=== PATIENT | male | born 1985 | race Caucasian/White ===

== ENCOUNTER 2016-06-14 15:39 | Emergency (ER) | payer OTHER ==
[~2016-06-14 15:39] MED LIST: KEFLEX500 M1 PO
--- NOTE | 2016-06-14 15:49 | ED PSYCHIATRIC COMPLAINT ---
History of Present Illness General Chief Complaint: Psychiatric Related Complaint Stated Complaint: PSYCH EVAL Source: patient, old records Exam Limitations: no limitations Vital Signs & Intake/Output Vital Signs & Intake/Output Vital Signs Date Time Temp Pulse Resp B/P Pulse O2 O2 Flow FiO2 Ox Delivery Rate 06/14 1613 Room Air 06/14 1544 97.5 90 18 126/86 97 Room Air Allergies Coded Allergies: No Known Allergies (09/30/15) Reconcile Medications No Known Home Medications Triage Note: PT BIBA FOR PSYCH EVAL. PER EMS PT WAS AT [facility], MADE +SI COMMENTS, AND WAS BROUGHT IN FOR EVALUATION. PT WAS COMBATIVE ON SCENE, ARRIVED CALM AND COOPERATIVE. PER PT HE DOES NOT WANT TO HURT HIMSELF OR OTHERS. Triage Nurses Notes Reviewed? 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 According to the patient he states he wasn't suicidal but very upset about being denied Social Security at his hearing 1 month ago. History of previous suicide attempt in August 2014 but states that he does want to kill himself anymore. Patient lives alone. Denies any hallucinations or drug abuse. He states he does not hurt anybody else either. 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 He states the future should he lose his job secondary to stress he wants the system to be aware of his chronic medical issues. Issues and he doesn't want a delay of 2 or 3 years to get another Social Security hearing. Past History Medical History Any Pertinent Medical History? 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 No Review of Systems Review of Systems Constitutional: Denies: chills, fever. EENTM: Reports: no symptoms. Respiratory: Denies: cough, short of breath. Cardiovascular: Denies: chest pain, palpitations. GI: Denies: abdominal pain. Genitourinary: Reports: no symptoms. Musculoskeletal: Reports: no symptoms. Skin: Reports: no symptoms. Neurological/Psychological: Reports: anxiety, depressed. Hematologic/Endocrine: Denies: bruising, bleeding, polyuria, polydipsia. Immunologic/Allergic: Denies: splenectomy. All Other Systems: Reviewed and Negative Physical Exam Physical Exam General Appearance: well developed/nourished, alert, awake, anxious, mild distress, obese Head: atraumatic Eyes: Bilateral: PERRL, EOMI. 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 yes 1 Depression/Hopelessness? yes 2 Previous Attempts/Psych Care yes 1 Rational Thinking Loss? yes 2 Social Support? has support 0 Total 6 SAD PERSONS Done? yes Progress Differential Diagnosis: anxiety, depression, suicidal ideation, ptsd Plan of Care: Orders Procedure Date/time Status URINE DRUGS OF ABUSE 06/14 1741 Active URINALYSIS 06/14 1741 Complete Continuous Observation Monitor 06/14 1641 Active ETHANOL 06/14 1641 Complete COMPREHENSIVE METABOLIC PANEL 06/14 1641 Complete CBC WITHOUT DIFFERENTIAL 06/14 1641 Complete ED CRISIS PSYCH CONSULT 06/14 1641 Active Laboratory Tests 06/14/16 1747: Urine Opiates Screen Pending, Methadone Screen Pending, Barbiturate Screen Pending, Ur Phencyclidine Scrn Pending, Amphetamines Screen Pending, U Benzodiazepines Scrn Pending, Urine Cocaine Screen Pending, Urine Cannabis Screen Pending, Urine Color YEL, Urine Clarity CLEAR, Urine pH 6.0, Ur Specific [place] 1.025, Urine Protein TRACE H, Urine Ketones NEG, Urine Nitrite NEG, Urine Bilirubin NEG, Urine Urobilinogen 0.2, Ur Leukocyte Esterase NEG, Ur Microscopic SEDIMENT EXAMINED, Urine RBC RARE, Urine WBC 1-3 H, Ur Epithelial Cells RARE, Hyaline Casts FEW H, Urine Mucus RARE, Urine Hemoglobin NEG, Urine Glucose NEG 06/14/16 1649: Anion Gap 12, Estimated GFR > 60, BUN/Creatinine Ratio 18.8, Glucose 189 H, Calcium 9.0, Total Bilirubin 0.4, AST 22, ALT 24, Alkaline Phosphatase 63, Total Protein 7.4, Albumin 4.3, Globulin 3.1, Albumin/Globulin Ratio 1.4, CBC w Diff NO MAN DIFF REQ, RBC 5.00, MCV 82.9, MCH 27.9, RDW 14.1, MPV 9.7, Gran % 67.2, Lymphocytes % 22.8, Monocytes % 7.2, Eosinophils % 2.5, Basophils % 0.3, Absolute Granulocytes 5.4, Absolute Lymphocytes 1.8, Absolute Monocytes 0.6, Absolute Eosinophils 0.2, Absolute Basophils 0, PUBS MCHC 33.7, Serum Alcohol < 10.0 PATIENT SEEN AND CLEARED BY [facility] FOR DISCHARGE HOME ([facility]) Departure Departure Time of Disposition: 1845 Disposition: HOME OR SELF CARE Condition: Stable Clinical Impression Primary Impression: PTSD (post-traumatic stress disorder) Secondary Impressions: Autism spectrum disorder Referrals: PATIENT HAS NO PRIMARY CARE DR (PCP/Family) Additional Instructions: FOLLOW UP WITH CARE ON FRIDAY. RETURN NEEDED. Departure Forms: Customer Survey General Discharge Information Prescriptions: Current Visit Scripts No Known Home Medications
[2016-06-14 17:14] LABS: ABSOLUTE BASOPHIL COUNT 0 /CUMM (0.0-0.2); ABSOLUTE EOSINOPHIL COUNT 0.2 /CUMM (0.0-0.7); ABSOLUTE GRANULOCYTE CT 5.4 /CUMM (1.4-6.5); ABSOLUTE LYMPH COUNT 1.8 /CUMM (1.2-3.4); ABSOLUTE MONOCYTE COUNT 0.6 /CUMM (0.10-0.60); BASOPHIL % 0.3 % (0.0-2.0); EOSINOPHIL % 2.5 % (0-5); GRANULOCYTE % 67.2 % (42.2-75.2); HEMATOCRIT 41.4 % (42-52); MEAN CORPUSCULAR HGB 27.9 PG (27.0-31.0); MEAN CORPUSCULAR HGB CONC 33.7 G/DL (33.0-37.0); MEAN CORPUSCULAR VOLUME 82.9 FL (80.0-94.0); MEAN PLATELET VOLUME 9.7 FL (7.4-10.4); PLATELET COUNT 196 /CUMM (130-400); RBC DISTRIBUTION WIDTH 14.1 % (11.5-14.5)
--- NOTE | 2016-06-14 18:44 | ED PSYCH CRISIS CONSULTATION ---
Crisis Consult Basic Assessment Date of Consult: 06/14/16 Responsible Person/Accompanied By: None - brought in on [facility] Insurance Authorization: Insurance #1: Insurance name: PATRICK COLBERT Phone number: Policy number: [id number] Group number: Authorization number: ED Provider: Patient's ED Provider: ADAN SANCHEZ MD Primary Care Physician: Patient's PCP: PATIENT HAS NO PRIMARY CARE DR PCP's Phone Number: Current Psychiatrist: Patient denies Chief Complaint: Psychiatric Related Complaint Patient's Quote: I got a letter from social security...I was denied." Present Illness: Patient is a 31 year old male who presents to the emergency department due to report from [facility] of him making a suicidal statement. Pt. admits he made a suicidal statement and reports primary stressor of being denied social security benefits after a recent disability hearing. Pt. received a letter last week. Pt. was explaining this situation to his vocational counselor at [facility] and became escalated. Pt. has historical diagnoses of PTSD and Autism Spectrum Disorder. Pt. also reports a diagnosis of Borderline Personality Disorder which was not confirmed by [facility]. Pt. also reports being frustrated by the conflict between reality and his fantasy world. Pt. states "I like to live in a fantasy." Pt. was holding a purple pony doll and introduced it as "Robyn." Pt. was last evaluated at [facility] by crisis on 04/30/2016 *see consult. Pt. reports he is part of two online communities known as "Keep[employer]" and "Clone." A part of these imaginary lifestyles is wearing diapers / simulating baby behavior and wearing animal costumes. Pt. does not report being active socially with this community or attending conventions. Pt. denies current suicidal ideation, plan or intent. Pt. reports he cut last year in August and states "that scared me out of wanting to do anything." Pt. also stated " I definitely dont have a plan." Pt. asserts he is mostly disappointed about his SSI denial and also the conflict between his personas stating "When I said that...maybe it's because no one acknowledges me." Pt. 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 Pt. is interested in disability benefits more as a back-up plan if he were to lose his job or become unable to perform it. Pt. is anxious about revealing his "brony" / "baby fur" persona to his employer but wants to wear his fur ears while working. Pt. denies A/V hallucinations. Pt. denies anxiety or long standing depressed mood. Pt. has support of [facility] for mental health therapy as well as residential and vocational assistance. Pt. is estranged from his mother due to her disapproval of his chosen persona. Pt. is engaged in family therapy in an attempt to resolve this family conflict. Patient's Address: [address] [place] [id number] Other Phone Number: Who Do You Live With? Patient/Self Family/Informants Interviewed: no family/collateral ID'd Allergies - Coded Allergies: No Known Allergies (09/30/15) Current Medications - No Known Home Medications Laboratory Results: Laboratory Tests 06/14/16 1747: Urine Opiates Screen < 100.00, Methadone Screen < 40, Barbiturate Screen < 60, Ur Phencyclidine Scrn < 6.00, Amphetamines Screen < 100, U Benzodiazepines Scrn < 85, Urine Cocaine Screen < 50, Urine Cannabis Screen < 5.00, Urine Color YEL, Urine Clarity CLEAR, Urine pH 6.0, Ur Specific [place] 1.025, Urine Protein TRACE H, Urine Ketones NEG, Urine Nitrite NEG, Urine Bilirubin NEG, Urine Urobilinogen 0.2, Ur Leukocyte Esterase NEG, Ur Microscopic SEDIMENT EXAMINED, Urine RBC RARE, Urine WBC 1-3 H, Ur Epithelial Cells RARE, Hyaline Casts FEW H , Urine Mucus RARE, Urine Hemoglobin NEG, Urine Glucose NEG 06/14/16 1649: Anion Gap 12, Estimated GFR > 60, BUN/Creatinine Ratio 18.8, Glucose 189 H, Calcium 9.0, Total Bilirubin 0.4, AST 22, ALT 24, Alkaline Phosphatase 63, Total Protein 7.4, Albumin 4.3, Globulin 3.1, Albumin/Globulin Ratio 1.4, CBC w Diff NO MAN DIFF REQ, RBC 5.00, MCV 82.9, MCH 27.9, RDW 14.1, MPV 9.7, Gran % 67.2, Lymphocytes % 22.8, Monocytes % 7.2, Eosinophils % 2.5, Basophils % 0.3, Absolute Granulocytes 5.4, Absolute Lymphocytes 1.8, Absolute Monocytes 0.6, Absolute Eosinophils 0.2, Absolute Basophils 0, PUBS MCHC 33.7, Serum Alcohol < 10.0 Past History Past Medical History 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. He lives in his own apartment and has job, drives Physical Limitations (Interventions): none known Psychiatric Treatment History Psych Treatment Psychiatric Treatment Yes Inpatient Treatment No Outpatient Treatment Yes Location of Treatment [facility] in [place], [place] Reason for Treatment Autism Spectrum Disorder, Anxiety, Vocational assistance and development needs Dates of Treatment Since 2013 Response to Treatment Stable - maintaining in the community and employed. Patient is no longer on Zoloft as he had negative side effect of headaches and also reported limited positive effect. Diagnosis by History: Aspergers & depression Substance Use/Abuse History Drug Use/Abuse Substances Used/Abused No (Pt. denies) First Use - Last Used - How much used/taken - How often - For how long - Route of use - Substance Abuse Treatment Substance Abuse Treatment Past Substance Abuse [place] No (Pt. denies) Location of Treatment - Reason for Treatment - Dates of Treatment - Response to Treatment - Comments: - Current Mental Status Mental Status Orientation: Person, Place, Situation Affect: Flat Speech: Mumbled Neuro-vegetative: WNL Appearance Appearance- Dress/Hygiene: Pt dressed in hospital scrubs. Pt. was holding a doll. This underwriter observed healed cuts on pt.'s right arm which he reported was from cutting - last occurence ~ August 2015. Behaviors Thought Process: WNL Thought Content: WNL Memory: WNL Insight: Fair SI/HI Risk Assessment Past Suicidal Ideation/Attempts Yes Current Suicidal Ideation/Att No (Pt. denies current ideation) Past Homicidal Ideation/Att: No (Pt. denies) Current Homicidal Ideation/Attempts No (Pt. denies) Degree of Intent: None Danger To: N/A Gravely Disabled: Poor Impulse Control Risk Factors: chronic/serious med cond., high anxiety/distress, poor impulse control, lives alone, male Lethality Ratin (mild) PTSD Checklist PTSD Done? patient declined ED Management Sitter: Yes Restraints: No DSM5/PS Stressors/Medical Prob Diagnosis' (DSM 5, Stressors, Medical): F84.0 Autism spectrum disorder F43.10 Post Traumatic Stress Disorder, unspecified Rule - out for F60.3 Borderline Personality Disorder Current GAF: 60 Comments: Reports difficulty with maintaining employment and pursuing disability benefits. Family conflict. Diabetes condition Departure Disposition Psych Medical Clearance Date: 06/14/16 Medically Cleared at: 1745 Time Started: 174 Time Ended: 1844 Psychiatrist Consulted: Dr. Tru Shaw MD Date Disposition Established: 06/14/16 Time Disposition Established: 1829 Plan for Disposition - Modality: Outpatient Facility: [facility] Follow-up Appt Date: 06/21/16 Contact: Pop Rationale for Disposition: Pt. denies current suicidal intent or plan. Pt. is future oriented and intends to follow up with his current outpatient counselor. Referrals PATIENT HAS NO PRIMARY CARE DR (PCP/Family)
[2016-06-14 18:50] VITALS: BP 122/76
--- NOTE | 2016-06-14 19:28 | ED PSY CRISIS COLLATERAL NOTE ---
Collateral Note Collateral Note Family/Inform/Miranda Contacts: Spoke to Mariela of [facility] who states that patient has made multiple threats to kill himself and retracted the statements over the past week. Mariela states that the patient was recently denied social security disability and believes that this was a trigger for him. Mariela reports that the patient was papered by the doctor and was agitated when sent to the ED resulting in him strapped down in the ambulance. Mariela reports the patient believes he is a furry being attached to a stuffed animal and wearing diapers by choice. Mariela states the patient has refused his medication. She reports the patient has been diagnosed with Borderline Personality Disorder, PTSD, Autism Spectrum and Persistent Depressive Disorder. She states a face sheet was sent with the ambulance. This note prepared by Juanito Pulido, SUPERVISOR AIR CONDITIONING INSTALLER Baggage Screener and signed off by Brannon Peters LCSW
== END 2016-06-14 18:54 ==
LOC: ERH 15:39
PROVIDERS: Emergency Medicine
DX: F43.10 Post-traumatic stress disorder, unspecified (principal); F84.0 Autistic disorder
CPT/HCPCS: 80307; 81001; G0463; G0480

== ENCOUNTER 2016-07-05 19:34 | Emergency (ER) | payer OTHER ==
[~2016-07-05] VITALS: Ht 182.9 cm; Wt 113.4 kg
[2016-07-05] MEDS ORDERED: ATIVAN0.5 M1 PO (20:09)
--- NOTE | 2016-07-05 20:09 | ED PSYCHIATRIC COMPLAINT ---
History of Present Illness General Chief Complaint: Psychiatric Related Complaint Stated Complaint: "NEED TO SPEAK TO SOMEONE" Source: patient Exam Limitations: no limitations Vital Signs & Intake/Output Vital Signs & Intake/Output Vital Signs Date Time Temp Pulse Resp B/P Pulse O2 O2 Flow FiO2 Ox Delivery Rate 07/06 0143 97.3 88 18 138/82 100 Room Air 07/05 2359 97.9 90 18 141/85 99 Room Air 07/05 1952 97.1 96 18 145/91 98 Room Air ED Intake and Output 07/06 0000 07/05 1200 Intake Total Output Total Balance Patient 250 lb Weight Allergies Coded Allergies: No Known Allergies (09/30/15) Reconcile Medications Lorazepam (Ativan) 0.5 MG TABLET 1 TAB PO BIDP PRN anxiety five...[id number] Triage Note: PT TO TRIAGE WITH STATEMENT "EVERYONE IS PICKING AT ME AT WORK, AND I'M BEING HARASSED AT WORK BECAUSE MY CLOSE IS DURTY" , "I'M FEELING HOPELESS". PT APPEARS SAD, DEPRESSED, CRYING IN TRIAGE. DENIES SI/HI, DENIES ETOH/ILLICIT DRUGS USE. VSS. PT AMB TO ROOM13. Triage Nurses Notes Reviewed? yes Onset: Gradual Duration: day(s): Severity: mild, moderate Associated Symptoms: anxiety HPI: 31 yo gentleman, h/o asperger's presents tearful after an episode at work. "I work at [email or web address]... A customer said that my clothes were unclean... My boss told me about it... I feel like he is harrassing me.... I feel like I do a good job." He denies suicidality, homicidality, hallucinations. He states that he is otherwise well. Past History Travel History Traveled to [place] past 21 day No Medical History Any Pertinent Medical History? 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 No Review of Systems Review of Systems Constitutional: Reports: no symptoms. EENTM: Reports: no symptoms. Respiratory: Reports: no symptoms. Cardiovascular: Reports: no symptoms. GI: Reports: no symptoms. Genitourinary: Reports: no symptoms. Musculoskeletal: Reports: no symptoms. Skin: Reports: no symptoms. Neurological/Psychological: Reports: no symptoms. Hematologic/Endocrine: Reports: no symptoms. Immunologic/Allergic: Reports: no symptoms. All Other Systems: Reviewed and Negative Physical Exam Physical Exam General Appearance: well developed/nourished, mild distress Head: atraumatic Eyes: Bilateral: PERRL, EOMI. Ears, Nose, Throat: normal pharynx, normal ENT inspection, hearing grossly normal Neck: normal inspection, supple Respiratory: normal breath sounds Cardiovascular: regular rate/rhythm Gastrointestinal: soft, non-tender Extremities: normal range of motion Neurological/Psychiatric: no motor/sensory deficits, awake, agitated, anxious Appearance/Memory/Insight: appropriate appearance, denies illness, disheveled Behavoir/Eye Contact/Speech: cooperative Thoughts/Hallucinations: normal thought pattern, no apparent hallucination Skin: intact, normal color, warm/dry SAD PERSONS Done? patient not suicidal Progress Differential Diagnosis: agitation, anxiety, asperger's Plan of Care: Orders Procedure Date/time Status Regular Diet 07/06 B Active Continuous Observation Monitor 07/05 2023 Active URINE DRUG SCREEN FOR ER ONLY 07/05 2023 Complete ETHANOL 07/05 2023 Complete COMPREHENSIVE METABOLIC PANEL 07/05 2023 Complete CBC WITHOUT DIFFERENTIAL 07/05 2023 Complete ED CRISIS PSYCH CONSULT 07/05 2023 Active Laboratory Tests 07/05/166: Serum Alcohol < 10.0 07/05/16 2136: Anion Gap 11, Estimated GFR > 60, BUN/Creatinine Ratio 11.1, Glucose 126 H, Calcium 8.5, Total Bilirubin 0.4, AST 29, ALT 31, Alkaline Phosphatase 57, Total Protein 6.4, Albumin 3.7, Globulin 2.7, Albumin/Globulin Ratio 1.4, CBC w Diff NO MAN DIFF REQ, RBC 4.26 L, MCV 82.8, MCH 27.9, RDW 13.7, MPV 9.4, Gran % 51.4 , Lymphocytes % 33.5, Monocytes % 12.8 H, Eosinophils % 1.9, Basophils % 0.4, Absolute Granulocytes 3.0, Absolute Lymphocytes 1.9, Absolute Monocytes 0.7 H, Absolute Eosinophils 0.1, Absolute Basophils 0, PUBS MCHC 33.7, Urine Opiates Screen < 100.00, Methadone Screen < 40, Barbiturate Screen < 60, Ur Phencyclidine Scrn < 6.00, Amphetamines Screen < 100, U Benzodiazepines Scrn < 85, Urine Cocaine Screen < 50, Urine Cannabis Screen < 5.00 Departure Departure Disposition: HOME OR SELF CARE Condition: Stable Clinical Impression Primary Impression: Anxiety Secondary Impressions: Asperger syndrome Referrals: PATIENT HAS NO PRIMARY CARE DR (PCP/Family) Departure Forms: Customer Survey General Discharge Information Prescriptions: Current Visit Scripts Lorazepam (Ativan) 1 TAB PO BIDP PRN anxiety #5 TAB five...[id number] Comments 07/05/16, 20:24.... pt became aggressive, belligerent, with violent, unstable outburst. Pt given haldol 10mg im and ativan 2mg im. Pt to be evaluated by roberta in the AM. 07/06/2016, 1:45 AM: Patient feeling well. He denies suicidality, homicidality, or hallucinations. He would like to go home. He will follow up with care. I gave a prescription for a small amount of Ativan as a bridge to follow-up at care.
[2016-07-05 21:45] LABS: ABSOLUTE BASOPHIL COUNT 0 /CUMM (0.0-0.2); ABSOLUTE EOSINOPHIL COUNT 0.1 /CUMM (0.0-0.7); ABSOLUTE LYMPH COUNT 1.9 /CUMM (1.2-3.4); ABSOLUTE MONOCYTE COUNT 0.7 /CUMM (0.10-0.60); BASOPHIL % 0.4 % (0.0-2.0); EOSINOPHIL % 1.9 % (0-5); GRANULOCYTE % 51.4 % (42.2-75.2); HEMATOCRIT 35.3 % (42-52); MEAN CORPUSCULAR HGB 27.9 PG (27.0-31.0); MEAN CORPUSCULAR HGB CONC 33.7 G/DL (33.0-37.0); MEAN CORPUSCULAR VOLUME 82.8 FL (80.0-94.0); MEAN PLATELET VOLUME 9.4 FL (7.4-10.4); PLATELET COUNT 153 /CUMM (130-400); RBC DISTRIBUTION WIDTH 13.7 % (11.5-14.5); RED BLOOD CELL CT 4.26 /CUMM (4.70-6.10); WHITE BLOOD CELL COUNT 5.8 /CUMM (4.8-10.8)
[2016-07-06 01:43] VITALS: BP 138/82
== END 2016-07-06 01:44 ==
LOC: ERH 19:34
PROVIDERS: Pediatrics
DX: F41.9 Anxiety disorder, unspecified (principal); F84.5 Asperger's syndrome
CPT/HCPCS: 80307; 96372; G0480; J1630

== ENCOUNTER 2016-09-25 22:35 | Emergency (ER) | payer OTHER ==
[~2016-09-25] VITALS: Ht 182.9 cm; Wt 113.4 kg
[~2016-09-25 22:35] MED LIST changes: +ATIVAN0.5 M1 PO
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
[2016-09-25 23:36] LABS: ABSOLUTE BASOPHIL COUNT 0 /CUMM (0.0-0.2); ABSOLUTE EOSINOPHIL COUNT 0.2 /CUMM (0.0-0.7); ABSOLUTE GRANULOCYTE CT 6.8 /CUMM (1.4-6.5); ABSOLUTE LYMPH COUNT 2.1 /CUMM (1.2-3.4); ABSOLUTE MONOCYTE COUNT 0.7 /CUMM (0.10-0.60); BASOPHIL % 0.4 % (0.0-2.0); EOSINOPHIL % 1.9 % (0-5); GRANULOCYTE % 68.7 % (42.2-75.2); HEMATOCRIT 38.6 % (42-52); MEAN CORPUSCULAR HGB 27.7 PG (27.0-31.0); MEAN CORPUSCULAR HGB CONC 33.2 G/DL (33.0-37.0); MEAN CORPUSCULAR VOLUME 83.4 FL (80.0-94.0); MEAN PLATELET VOLUME 9.7 FL (7.4-10.4); PLATELET COUNT 191 /CUMM (130-400); RBC DISTRIBUTION WIDTH 14.4 % (11.5-14.5); RED BLOOD CELL CT 4.63 /CUMM (4.70-6.10); WHITE BLOOD CELL COUNT 9.9 /CUMM (4.8-10.8)
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
[2016-09-26 11:37] VITALS: BP 129/77
== END 2016-09-26 12:45 ==
LOC: ERH 22:35
PROVIDERS: Emergency Medicine
DX: R45.851 Suicidal ideations (principal)
CPT/HCPCS: 80307; 96372; G0463; G0480; J1200; J1630